=== PATIENT | male | born 1990 | race American Indian/Alaskan Native ===

== ENCOUNTER 2017-06-17 01:34 | Emergency (ER) | payer SELFPAY ==
[2017-06-17] MEDS ORDERED: TETRACAINE 0.5% ONE (04:31)
[2017-06-17] MEDS ORDERED: FUL-GLO OP ONE ×2 (04:31→05:18)
--- NOTE | 2017-06-17 05:13 | Emergency Department Report ---
ED Eye Problem HPI - General Chief complaint: Eye Problems Stated complaint: L EYE PAIN/FOREIGN OBJECT Time Seen by Provider: 06/17/17 04:39 Source: patient Mode of arrival: Ambulatory Limitations: No Limitations - Related Data Previous Rx's Medication Instructions Recorded Last Taken Type Polymyxin B Sulf/Trimethoprim 1 drop OP QID #1 bottle 06/17/17 Unknown Rx [[facility] Eye Drops [id number]/0.1%] Allergies Allergy/AdvReac Type Severity Reaction Status Date / Time No Known Allergies Allergy Verified 06/17/17 02:01 ED Review of Systems ROS: Stated complaint: L EYE PAIN/FOREIGN OBJECT Other details as noted in HPI ED Past Medical Hx - Past Medical History Previous Medical History?: No - Surgical History Past Surgical History?: No - Social History Smoking Status: Current Every Day Smoker Substance Use Type: Alcohol - Medications Home Medications: Home Medications Medication Instructions Recorded Confirmed Last Taken Type Polymyxin B Sulf/Trimethoprim 1 drop OP QID #1 bottle 06/17/17 Unknown Rx [[facility] Eye Drops [id number]/0.1%] ED Physical Exam - General Limitations: No Limitations ED Course Vital Signs 06/17/17 02:01 Temperature 98.4 F Pulse Rate 66 Respiratory 20 Rate Blood Pressure 119/70 Critical care attestation.: If time is entered above; I have spent that time in minutes in the direct care of this critically ill patient, excluding procedure time. ED Disposition Clinical Impression: Left corneal abrasion Qualifiers: Encounter type: initial encounter Qualified Code(s): S05.02XA - Injury of conjunctiva and corneal abrasion without foreign body, left eye, initial encounter Disposition: - TO HOME OR SELFCARE Is pt being admited?: No Does the pt Need Aspirin: No Condition: Stable Prescriptions: Polymyxin B Sulf/Trimethoprim [[facility] Eye Drops [id number]/0.1%] 1 drop OP QID #1 bottle Referrals: PRIMARY CARE, [Primary Care Provider] - 3-5 Days SUKHDEV JOSEPH DO [Staff Physician] - 3-5 Days RADHA SINGER MD [Staff Physician] - 3-5 Days
[2017-06-17] MEDS ORDERED: TETRACAINE 0.5% OU PRN (05:16)
[2017-06-17 05:35] VITALS: BP 135/81
== END 2017-06-17 05:35 | disposition home or self-care (01) ==
LOC: ED 01:34
DX: S05.02XA Injury of conjunctiva and corneal abrasion without foreign body, left eye, initial encounter (principal); F17.210 Nicotine dependence, cigarettes, uncomplicated; X58.XXXA Exposure to other specified factors, initial encounter; Y93.89 Activity, other specified; Y92.89 Other specified places as the place of occurrence of the external cause; Y99.8 Other external cause status
CPT/HCPCS: 99283